=== PATIENT | female | born 1980 | race Caucasian/White ===

== ENCOUNTER 2016-11-19 13:04 | Inpatient (IN) | payer BC ==
[~2016-11-19] VITALS: Ht 162.6 cm; Wt 59.0 kg
[2016-11-19] MEDS ORDERED: DiphenhydrAMINE 50mg/ml Inj IVP ONE (13:30)
[2016-11-19] MEDS ORDERED: HYDROmorphone 1mg/ml Carpuject IVP ONE (13:30)
[2016-11-19 13:59] LABS: MEAN CORPUSCULAR HEMOGLOBIN 29.3 PG (27.0-31.0); MEAN CORPUSCULAR VOLUME 89 FL (80-99); MEAN PLATELET VOLUME 7.7 FL (6.5-10.1); PLATELET COUNT 170 K/UL (150-450); RED BLOOD COUNT 3.89 M/UL (4.20-5.40); WHITE BLOOD COUNT 6.5 K/UL (4.8-10.8)
[2016-11-19 14:14] LABS: ALANINE AMINOTRANSFERASE 8 U/L (3-33); ALBUMIN/GLOBULIN RATIO 1.6 (1.0-2.7); ANION GAP 10 (5-15); ASPARTATE AMINO TRANSFERASE 17 U/L (5-40); CALCIUM 8.7 mg/dL (8.6-10.2); CARBON DIOXIDE 29 mEQ/L (20-30); CHLORIDE 100 mEQ/L (98-107); CREATININE 0.7 mg/dL (0.5-0.9); GLOMERULAR FILTRATION RATE > 60 mL/min (>60); HEMOLYSIS 0; LIPASE 18 U/L (< 60); POTASSIUM 3.8 mEQ/L (3.4-4.9); SODIUM 139 mEQ/L (135-145); TOTAL PROTEIN 6.3 g/dL (6.6-8.7)
[2016-11-19 14:17] LABS: BAND NEUTROPHILS % (MANUAL) 0 % (0-8); BASOPHILS % (MANUAL) 0 % (0-2); EOSINOPHILS % (MANUAL) 1 % (0-3); LYMPHOCYTES % (MANUAL) 7 % (20-45); NEUTROPHILS % (MANUAL) 88 % (45-75); PLATELET ESTIMATE ADEQUATE; PLATELET MORPHOLOGY NORMAL; TOTAL CELLS COUNTED 100
[2016-11-19 15:08] LABS: KETONES,URINE NEGATIVE (NEGATIVE); LEUKOCYTE ESTERASE ,URINE 3+ (NEGATIVE); NITRITE,URINE NEGATIVE (NEGATIVE); PH,URINE 8 (4.5-8.0); PROTEIN,URINE NEGATIVE (NEGATIVE); UROBILINOGEN,URINE NORMAL MG/DL (0.0-1.0)
[2016-11-19 15:09] LABS: APPEARANCE,URINE SLIGHTLY CLOUDY
[2016-11-19] MEDS ORDERED: Zolpidem 5mg tab ORAL PRN (15:15)
--- NOTE | 2016-11-19 15:16 | Emergency Room Report ---
History of Present Illness General Chief Complaint: Abdominal Pain Source: Patient Present Illness HPI 36-year-old female presents to ED for evaluation. Patient is status post uterine artery embolization 3 days ago. Patient states he is here because she' s been having increasing abdominal pain since the surgery. Pain is 8/10, sharp , nonradiating. Also complaining of diarrhea. That she was a chills. Denies chest pain or shortness of breath. Denies nausea or vomiting. No other aggravating relieving factors. Denies any other associated symptoms Allergies: Coded Allergies: ACETAMINOPHEN (Verified Allergy, Intermediate, 11/19/16) HYDROCODONE (Verified Allergy, Intermediate, 11/19/16) KETOROLAC (Verified Allergy, Intermediate, 11/19/16) MORPHINE (Verified Allergy, Intermediate, 11/19/16) Patient History Past Medical History: none Past Surgical History: other - uterine artery embolization Pertinent Family History: none Social History: Denies: smoking, alcohol use, drug use Now: No Immunizations: UTD Reviewed Nursing Documentation: PMH: Agreed, PSxH: Agreed Nursing Documentation-PMH Hx Gastrointestinal Problems: Yes - histerostomy and ablation of uterus Review of Systems All Other Systems: negative except mentioned in HPI Physical Exam Vital Signs Date Time Temp Pulse Resp B/P (MAP) Pulse Ox O2 Delivery O2 Flow Rate FiO2 11/19/16 13:17 98.1 78 16 118/77 98 Room Air Sp02 EP Interpretation: reviewed, normal General Appearance: no apparent distress, alert, GCS 15, non-toxic Head: normocephalic, atraumatic Eyes: bilateral eye normal inspection, bilateral eye PERRL ENT: hearing grossly normal, normal pharynx, no angioedema, normal voice Neck: full range of motion, supple/symm/no masses Respiratory: chest non-tender, lungs clear, normal breath sounds, speaking full sentences Cardiovascular #1: regular rate, rhythm, no edema Cardiovascular #2: 2+ carotid (R), 2+ carotid (L), 2+ radial (R), 2+ radial (L) , 2+ dorsalis pedis (R), 2+ dorsalis pedis (L) Gastrointestinal: normal bowel sounds, soft, non-distended, no guarding, no rebound, tenderness Rectal: deferred Genitourinary: normal inspection, no CVA tenderness Musculoskeletal: back normal, gait/station normal, normal range of motion, non- tender Neurologic: alert, oriented x3, responsive, motor strength/tone normal, sensory intact, speech normal Psychiatric: judgement/insight normal, memory normal, mood/affect normal, no suicidal/homicidal ideation Reflexes: 3+ bicep (R), 3+ bicep (L), 3+ tricep (R), 3+ tricep (L), 3+ knee (R) , 3+ knee (L) Skin: normal color, no rash, warm/dry, well hydrated Lymphatic: no adenopathy Medical Decision Making Diagnostic Impression: Primary Impression: Status post embolization of uterine artery Additional Impression: Postoperative abdominal pain ER Course Hospital Course 36-year-old female presents ED complaining of lower abdominal pain. Status post uterine artery embolization Differential diagnoses include: postop abscess. postoperative pain, gastroenteritis Clinical course Patient placed on stretcher. cardiac monitor technician. After initial history and physical I ordered labs, IV fluids, UA, pain medication and Pelvic US Labs - no leukocytosis, Hb/Hct stable. electrolytes ok. Pelvic US - changes c/w uterine artery embolization. no acute process Venous arterial duplex of lower extremities pending Case discussed with Dr. Laguna and he agreed to accept the patient to his service for further care and support. Dr rich will consult I feel this is a highly complex case requiring extensive working including EKG/ Rhythm strip, Xray/CT/US, Blood/urine lab work, repeat exams while in ED, and administration of strong opiates/narcotics for pain control, admission to hospital or close patient follow up. Diagnosis - s/p uterine artery embolization, postoperative abdominal pain Patient admitted to floor in serious condition Labs Test 11/19/16 13:43 11/19/16 15:00 White Blood Count 6.5 K/UL (4.8-10.8) Red Blood Count 3.89 M/UL (4.20-5.40) Hemoglobin 11.4 G/DL (12.0-16.0) Hematocrit 34.6 % (37.0-47.0) Mean Corpuscular Volume 89 FL (80-99) Mean Corpuscular Hemoglobin 29.3 PG (27.0-31.0) Mean Corpuscular Hemoglobin Concent 33.0 G/DL (32.0-36.0) Red Cell Distribution Width 14.0 % (11.6-14.8) Platelet Count 170 K/UL (150-450) Mean Platelet Volume 7.7 FL (6.5-10.1) Neutrophils (%) (Auto) % (45.0-75.0) Lymphocytes (%) (Auto) % (20.0-45.0) Monocytes (%) (Auto) % (1.0-10.0) Eosinophils (%) (Auto) % (0.0-3.0) Basophils (%) (Auto) % (0.0-2.0) Differential Total Cells Counted 100 Neutrophils % (Manual) 88 % (45-75) Lymphocytes % (Manual) 7 % (20-45) Monocytes % (Manual) 4 % (1-10) Eosinophils % (Manual) 1 % (0-3) Basophils % (Manual) 0 % (0-2) Band Neutrophils 0 % (0-8) Platelet Estimate Adequate Platelet Morphology Normal Red Blood Cell Morphology Normal Sodium Level 139 mEQ/L (135-145) Potassium Level 3.8 mEQ/L (3.4-4.9) Chloride Level 100 mEQ/L (98-107) Carbon Dioxide Level 29 mEQ/L (20-30) Anion Gap 10 (5-15) Blood Urea Nitrogen 4 mg/dL (7-23) Creatinine 0.7 mg/dL (0.5-0.9) Estimat Glomerular Filtration Rate > 60 mL/min (>60) Glucose Level 99 mg/dL (74-106) Calcium Level 8.7 mg/dL (8.6-10.2) Total Bilirubin 0.5 mg/dL (0.0-1.2) Aspartate Amino Transf (AST/SGOT) 17 U/L (5-40) Alanine Aminotransferase (ALT/SGPT) 8 U/L (3-33) Alkaline Phosphatase 37 U/L (35-104) Total Protein 6.3 g/dL (6.6-8.7) Albumin 3.9 g/dL (3.5-5.2) Globulin 2.4 g/dL Albumin/Globulin Ratio 1.6 (1.0-2.7) Lipase 18 U/L (< 60) Urine Color Pale yellow Urine Appearance Slightly cloudy Urine pH 8 (4.5-8.0) Urine Specific [place] 1.010 (1.005-1.035) Urine Protein Negative (NEGATIVE) Urine Glucose (UA) Negative (NEGATIVE) Urine Ketones Negative (NEGATIVE) Urine Occult Blood 5+ (NEGATIVE) Urine Nitrite Negative (NEGATIVE) Urine Bilirubin Negative (NEGATIVE) Urine Urobilinogen Normal MG/DL (0.0-1.0) Urine Leukocyte Esterase 3+ (NEGATIVE) Urine HCG, Qualitative Negative CT/MRI/US Diagnostic Results CT/MRI/US Diagnostic Results : Imaging Test Ordered: Pelvic US Impression changes consistent with uterine artery embolization Last Vital Signs Date Time Temp Pulse Resp B/P (MAP) Pulse Ox O2 Delivery O2 Flow Rate FiO2 11/19/16 13:17 98.1 78 16 118/77 98 Room Air Status: improved Disposition: ADMITTED INPATIENT Condition: Serious Referrals: NON PHYSICIAN (PCP) ELVIRA KELLER M.D. Nov 19, 2016 15:16
[2016-11-19 15:17] VITALS: BP 111/76
[2016-11-19 15:37] LABS: BACTERIA,URINE FEW /HPF; RBC,URINE 15-20 /HPF (0 - 2); SQUAMOUS EPITHELIAL CELL,UR FEW /LPF (NONE/OCC)
--- NOTE | 2016-11-19 15:51 | Diagnostic Imaging Report ---
Indication: Abdominal pain, status post uterine artery embolization 3 days earlier Technique: Transabdominal and transvaginal images Comparison: None Findings: Uterus measures 10 cm length by 6.4 cm AP. Within the uterus are multiple fibroids. These contain bright echoes, likely indicating gas which is expected after uterine artery embolization largest fibroid measures 3.9 cm long axis dimension. The endometrium measures 4 mm thick. There is a small amount of free fluid in the pelvic cul-de-sac. Right ovary measures 4.3 cm in length. The left ovary measures 4.3 cm length. Both ovaries demonstrate multiple follicles. Normal Doppler flow seen within the ovaries Impression: Multiple uterine fibroids. Bright echoes within the fibroids likely reflects gas related to recent uterine artery embolization, an expected finding Negative for adnexal mass Small amount of free cul-de-sac fluid, most likely physiologic
[2016-11-19] MEDS ORDERED: IBUPROFEN800 M1 (16:23)
[2016-11-19] MEDS ORDERED: OXYCODONE-ACET1 EAC3 (16:23)
[2016-11-19] MEDS ORDERED: AMOX TR-K CLV1 EAC2 (16:23)
[2016-11-19 16:25] VITALS: BP 123/67
[2016-11-19] MEDS: HYDROmorphone 1mg/ml Carpuject IVP PRN ×2 (18:21→23:06)
[2016-11-19] MEDS: D5 1/2NS w/KCl 20mEq 1,000 ML IV SCH (18:21)
[2016-11-19 20:00] VITALS: BP 105/63
--- NOTE | 2016-11-19 23:15 | Consultation ---
DATE OF CONSULTATION: 11/19/2016 INTERNAL MEDICINE CONSULTATION History of Present Illness: The patient is a very pleasant 36-year-old woman who came to the hospital for pelvic pain and diarrhea. She has a longstanding problem with uterine fibroids and underwent uterine artery embolization three days ago followed by a hysteroscopy two days ago. Following the procedures, she has had severe abdominal pain, which has been unremitting and getting worse. In addition, she was constipated and took a lot of laxatives and began having diarrhea and she got very weak and came to the emergency department and admission was recommended. There is slight swelling at the right groin at the arteriotomy site. She has no high fever. PAST MEDICAL HISTORY: Hypothyroidism, otherwise unremarkable. 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 She does not smoke. She drinks socially. She has no other major complaints. PHYSICAL EXAMINATION: GENERAL: The patient is alert and responds appropriately. Vital Signs: Blood pressure 118/77, temperature, heart rate, respirations, and saturation are normal. The patient appears thin. HEENT: The head is normocephalic. NECK: No jugular venous distention. CHEST: Clear. CARDIAC: Rhythm is regular. Thyroid is not enlarged. Abdomen: Soft, but tender in the lower abdomen and pelvis. There is no mass obvious, but there is mild guarding. Pelvic: The right groin shows an arthrotomy site without swelling or tenderness. Extremities: No clubbing, cyanosis, or edema. There is no CVA tenderness. Laboratory And Diagnostic Data: Normal chemistry. White count is 6500, hemoglobin is 11.4, and platelets are normal. There is mild left shift. IMPRESSION: 1. Post procedure pelvic pain. 2. Status post uterine artery embolization and hysteroscopy. 3. Hypothyroidism. Plan: The patient will be admitted and given intravenous fluids. Duplex will be obtained to rule out pseudoaneurysm of the right femoral artery. We will give appropriate pain medication. I do not believe antibiotics are needed and we will withhold any bowel medications at this time until the diarrhea resolves. Stool specimens will be sent. Thank you. Laurent Brownlee M.D. DR: GRIS JOB#: [id number] CC: Laurent Brownlee M.D.; Fax#: [phone] Laguna M.D. ; Fax#: [phone]
[2016-11-20] VITALS: BP 104/64
[2016-11-20] MEDS: D5 1/2NS w/KCl 20mEq 1,000 ML IV SCH ×4 (02:33→22:30)
[2016-11-20] MEDS: HYDROmorphone 1mg/ml Carpuject IVP PRN ×3 (02:33→08:41)
[2016-11-20 04:00] VITALS: BP 117/64
[2016-11-20 08:00] VITALS: BP 106/68
[2016-11-20 08:15] LABS: BASOPHILS % (AUTO) 0.7 % (0.0-2.0); LYMPHOCYTES % (AUTO) 15.9 % (20.0-45.0); MEAN CORPUSCULAR HEMOGLOBIN 29.8 PG (27.0-31.0); MEAN CORPUSCULAR HGB CONC 33.7 G/DL (32.0-36.0); MEAN CORPUSCULAR VOLUME 88 FL (80-99); MEAN PLATELET VOLUME 6.7 FL (6.5-10.1); MONOCYTES % (AUTO) 8.4 % (1.0-10.0); NEUTROPHILS % (AUTO) 74.1 % (45.0-75.0); PLATELET COUNT 147 K/UL (150-450); RED BLOOD COUNT 3.56 M/UL (4.20-5.40); RED CELL DISTRIBUTION WIDTH 13.7 % (11.6-14.8); WHITE BLOOD COUNT 6.1 K/UL (4.8-10.8)
[2016-11-20 08:27] LABS: ANION GAP 7 (5-15); CARBON DIOXIDE 28 mEQ/L (20-30); CHLORIDE 102 mEQ/L (98-107); CREATININE 0.7 mg/dL (0.5-0.9); GLOMERULAR FILTRATION RATE > 60 mL/min (>60); HEMOLYSIS 0; POTASSIUM 4.2 mEQ/L (3.4-4.9); SODIUM 137 mEQ/L (135-145)
--- NOTE | 2016-11-20 11:34 | General Surgery Progress Note ---
General Surgery-Progress Note Subjective Day of Surgery: november 16 Procedure Performed uterine artery embolization Chief Complaint: pain, diarrhea Symptoms: improved, tolerating diet, voiding well, passing flatus Objective Last 24 Hour Vital Signs Date Time Temp Pulse Resp B/P (MAP) Pulse Ox O2 Delivery O2 Flow Rate FiO2 11/20/16 09:11 99.7 11/20/16 08:00 100.2 74 18 106/68 97 Room Air 11/20/16 04:00 99.7 76 18 117/64 97 Room Air 11/20/16 00:00 99.1 81 17 104/64 97 Room Air 11/19/16 20:00 99.4 78 18 105/63 96 Room Air 11/19/16 16:30 99.0 66 17 118/68 100 Room Air 11/19/16 16:28 118/68 11/19/16 16:25 99.9 79 18 123/67 100 Room Air 11/19/16 15:56 99.0 11/19/16 15:17 99.9 75 17 111/76 100 Room Air 11/19/16 13:17 98.1 78 16 118/77 98 Room Air I&O Intake and Output 11/20/16 11/21/16 19:00 07:00 Intake Total 300 ml Balance 300 ml Intake Oral 200 ml IV Total 100 ml Dressing: dry Wound: clean Drains: none Cardiovascular: RSR Respiratory: clear Abdomen: soft, flat, scaphoid, non-tender, present bowel sounds Extremities: no edema, no tenderness, no cyanosis, pulses - dorsalis pedis pulses strong bilaterally Laboratory Tests Test 11/19/16 13:43 11/19/16 15:00 11/20/16 08:00 White Blood Count 6.5 K/UL (4.8-10.8) 6.1 K/UL (4.8-10.8) Red Blood Count 3.89 M/UL (4.20-5.40) L 3.56 M/UL (4.20-5.40) L Hemoglobin 11.4 G/DL (12.0-16.0) L 10.6 G/DL (12.0-16.0) L Hematocrit 34.6 % (37.0-47.0) L 31.5 % (37.0-47.0) L Mean Corpuscular Volume 89 FL (80-99) 88 FL (80-99) Mean Corpuscular Hemoglobin 29.3 PG (27.0-31.0) 29.8 PG (27.0-31.0) Mean Corpuscular Hemoglobin Concent 33.0 G/DL (32.0-36.0) 33.7 G/DL (32.0-36.0) Red Cell Distribution Width 14.0 % (11.6-14.8) 13.7 % (11.6-14.8) Platelet Count 170 K/UL (150-450) 147 K/UL (150-450) L Mean Platelet Volume 7.7 FL (6.5-10.1) 6.7 FL (6.5-10.1) Neutrophils (%) (Auto) % (45.0-75.0) 74.1 % (45.0-75.0) Lymphocytes (%) (Auto) % (20.0-45.0) 15.9 % (20.0-45.0) L Monocytes (%) (Auto) % (1.0-10.0) 8.4 % (1.0-10.0) Eosinophils (%) (Auto) % (0.0-3.0) 1.0 % (0.0-3.0) Basophils (%) (Auto) % (0.0-2.0) 0.7 % (0.0-2.0) Differential Total Cells Counted 100 Neutrophils % (Manual) 88 % (45-75) H Lymphocytes % (Manual) 7 % (20-45) L Monocytes % (Manual) 4 % (1-10) Eosinophils % (Manual) 1 % (0-3) Basophils % (Manual) 0 % (0-2) Band Neutrophils 0 % (0-8) Platelet Estimate Adequate Platelet Morphology Normal Red Blood Cell Morphology Normal Sodium Level 139 mEQ/L (135-145) 137 mEQ/L (135-145) Potassium Level 3.8 mEQ/L (3.4-4.9) 4.2 mEQ/L (3.4-4.9) Chloride Level 100 mEQ/L (98-107) 102 mEQ/L (98-107) Carbon Dioxide Level 29 mEQ/L (20-30) 28 mEQ/L (20-30) Anion Gap 10 (5-15) 7 (5-15) Blood Urea Nitrogen 4 mg/dL (7-23) L 3 mg/dL (7-23) L Creatinine 0.7 mg/dL (0.5-0.9) 0.7 mg/dL (0.5-0.9) Estimat Glomerular Filtration Rate > 60 mL/min (>60) > 60 mL/min (>60) Glucose Level 99 mg/dL (74-106) 110 mg/dL (74-106) H Calcium Level 8.7 mg/dL (8.6-10.2) 9.0 mg/dL (8.6-10.2) Total Bilirubin 0.5 mg/dL (0.0-1.2) Aspartate Amino Transf (AST/SGOT) 17 U/L (5-40) Alanine Aminotransferase (ALT/SGPT) 8 U/L (3-33) Alkaline Phosphatase 37 U/L (35-104) Total Protein 6.3 g/dL (6.6-8.7) L Albumin 3.9 g/dL (3.5-5.2) Globulin 2.4 g/dL Albumin/Globulin Ratio 1.6 (1.0-2.7) Lipase 18 U/L (< 60) Urine Color Pale yellow Urine Appearance Slightly cloudy Urine pH 8 (4.5-8.0) Urine Specific [place] 1.010 (1.005-1.035) Urine Protein Negative (NEGATIVE) Urine Glucose (UA) Negative (NEGATIVE) Urine Ketones Negative (NEGATIVE) Urine Occult Blood 5+ (NEGATIVE) H Urine Nitrite Negative (NEGATIVE) Urine Bilirubin Negative (NEGATIVE) Urine Urobilinogen Normal MG/DL (0.0-1.0) Urine Leukocyte Esterase 3+ (NEGATIVE) H Urine RBC 15-20 /HPF (0 - 2) H Urine WBC 10-15 /HPF (0 - 2) H Urine Squamous Epithelial Cells Few /LPF (NONE/OCC) Urine Bacteria Few /HPF (NONE) Urine HCG, Qualitative Negative Imaging pelvic ultrasound no active disease, ultrasound right groin negative. will repeat doppler leg arteries prior to discharge Assessment Post-op Diagnosis post embolization pain, low grade temperature, normal white count, blood culture sent, on ancef 1 gm ivpb q 8h. Plan Additional Comments attempt pain control with pills later today if possible. may shower, heplock iv. ambulate. José Antonio Laguna MD Nov 20, 2016 11:34
[2016-11-20] MEDS ORDERED: oxyCODONE 5mg IR tab ORAL PRN (11:45)
[2016-11-20] MEDS: ceFAZolin sod 1 GM in D5W 55 ML IVPB SCH ×3 (11:52→21:02)
[2016-11-20 12:00] VITALS: BP 100/59
[2016-11-20] MEDS ORDERED: HYDROmorphone 1mg/ml Carpuject IVP PRN (12:00)
[2016-11-20] MEDS: oxyCODONE 5mg IR tab ORAL PRN ×3 (12:40→21:17)
[2016-11-20 16:00] VITALS: BP 115/74
[2016-11-20] MEDS ORDERED: Tubing IV Secondary IV ONE (17:42)
[2016-11-20] MEDS ORDERED: NS Irrig 4000ml IRRIG ONE (17:42)
[2016-11-20 20:00] VITALS: BP 110/70
[2016-11-21] VITALS: BP 97/65
[2016-11-21] MEDS: oxyCODONE 5mg IR tab ORAL PRN (02:01)
[2016-11-21 04:00] VITALS: BP 104/60
--- NOTE | 2016-11-21 06:38 | Pulmonology Progress Note ---
Assessment/Plan Assessment/Plan 1. Post procedure pelvic pain. 2. Status post uterine artery embolization and hysteroscopy. 3. Hypothyroidism. 4. UTI 5. Atelectasis better today transition iv abx to po levaquin fu cultures labs still pendign today encouraged IS monitor dc planning Subjective Constitutional: Reports: fever HEENT: Repors: no symptoms Respiratory: Reports: no symptoms Cardiovascular: Reports: no symptoms Gastrointestinal/Abdominal: Reports: other Genitourinary: Reports: no symptoms Neurologic: Reports: no symptoms Psychiatric: Reports: no symptoms Skin: Reports: no symptoms Allergies: Coded Allergies: ACETAMINOPHEN (Verified Allergy, Intermediate, 11/19/16) HYDROCODONE (Verified Allergy, Intermediate, 11/19/16) KETOROLAC (Verified Allergy, Intermediate, 11/19/16) MORPHINE (Verified Allergy, Intermediate, 11/19/16) Subjective better this am scant bleeding no cp nv or fever at this time labs pending tolerating po Objective Last 24 Hour Vital Signs Date Time Temp Pulse Resp B/P (MAP) Pulse Ox O2 Delivery O2 Flow Rate FiO2 11/21/16 04:00 98.2 88 20 104/60 97 Room Air 11/21/16 00:00 98.3 85 18 97/65 96 Room Air 11/20/16 20:00 98.1 84 18 110/70 97 Room Air 11/20/16 17:56 98.3 11/20/16 16:00 101.2 87 17 115/74 97 Room Air 11/20/16 12:00 99.8 17 100/59 98 Room Air 11/20/16 09:11 99.7 11/20/16 08:00 100.2 74 18 106/68 97 Room Air General Appearance: WD/WN Respiratory/Chest: lungs clear Cardiovascular: normal rate Abdomen: normal bowel sounds, tender Extremities: no cyanosis Skin: no rash, no lesions Neurologic/Psychiatric: motor power connector II-XII grossly normal, no motor/sensory deficits, oriented x 3 Lymphatic: no neck adenopathy Musculoskeletal: no effusion Microbiology Date/Time Source Procedure Growth Status 11/19/16 15:00 Urine,Clean Catch Urine Culture - Final NO GROWTH AFTER 48 HOURS Complete Laboratory Tests 11/20/16 08:00: White Blood Count 6.1, Red Blood Count 3.56L, Hemoglobin 10.6L, Hematocrit 31.5L , Mean Corpuscular Volume 88, Mean Corpuscular Hemoglobin 29.8, Mean Corpuscular Hemoglobin Concent 33.7, Red Cell Distribution Width 13.7, Platelet Count 147L, Mean Platelet Volume 6.7, Neutrophils (%) (Auto) 74.1, Lymphocytes ( %) (Auto) 15.9L, Monocytes (%) (Auto) 8.4, Eosinophils (%) (Auto) 1.0, Basophils (%) (Auto) 0.7, Sodium Level 137, Potassium Level 4.2, Chloride Level 102, Carbon Dioxide Level 28, Anion Gap 7, Blood Urea Nitrogen 3L, Creatinine 0.7, Estimat Glomerular Filtration Rate > 60, Glucose Level 110H, Calcium Level 9.0 11/21/16 05:20: White Blood Count [Pending], Red Blood Count [Pending], Hemoglobin [Pending], Hematocrit [Pending], Mean Corpuscular Volume [Pending], Mean Corpuscular Hemoglobin [Pending], Mean Corpuscular Hemoglobin Concent [Pending], Red Cell Distribution Width [Pending], Platelet Count [Pending], Mean Platelet Volume [ Pending], Neutrophils (%) (Auto) [Pending], Lymphocytes (%) (Auto) [Pending], Monocytes (%) (Auto) [Pending], Eosinophils (%) (Auto) [Pending], Basophils (%) (Auto) [Pending], Sodium Level [Pending], Potassium Level [Pending], Chloride Level [Pending], Carbon Dioxide Level [Pending], Blood Urea Nitrogen [Pending], Creatinine [Pending], Estimat Glomerular Filtration Rate [Pending], Glucose Level [Pending], Calcium Level [Pending], Total Bilirubin [Pending], Aspartate Amino Transf (AST/SGOT) [Pending], Alanine Aminotransferase (ALT/SGPT) [Pending] , Alkaline Phosphatase [Pending], Total Protein [Pending], Albumin [Pending], Globulin [Pending] Current Medications Medications (Trade) Dose Ordered Sig/Danisha Route PRN Reason Start Time Stop Time Status Last Admin Dose Admin Cefazolin Sodium 1 gm/Dextrose 55 ml @ 110 mls/hr Q8HR IVPB 11/20/16 10:00 11/27/16 09:59 11/20/16 21:02 Dextrose (Dextrose 50%) STAT PRN IV Hypoglycemia 11/19/16 15:15 12/19/16 15:14 Dextrose/ Electrolytes 1,000 ml @ 100 mls/hr Q10H IV 11/19/16 16:30 12/19/16 16:29 11/20/16 22:30 Diphenhydramine HCl (Benadryl) 25 mg Q4H PRN ORAL Itching/Pruritis 11/19/16 15:15 12/19/16 15:14 11/21/16 00:09 Diphenhydramine HCl (Benadryl) 50 mg Q6H PRN ORAL Itching 11/19/16 17:00 12/19/16 16:59 Hydromorphone HCl (Dilaudid) 1 mg Q3H PRN IVP Mod to Severe Pain (pain 4-10) 11/20/16 12:00 11/26/16 15:14 Ondansetron HCl (Zofran) 4 mg Q6H PRN IVP Nausea & Vomiting 11/19/16 19:30 12/19/16 19:29 11/20/16 09:59 Oxycodone HCl (Roxicodone) 5 mg Q4H PRN ORAL Mod to Severe Pain (pain 4-10) 11/20/16 11:45 11/27/16 11:44 11/21/16 02:01 Thyroid ([place] Thyroid) 15 mg ACBREAKFAST ORAL 11/21/16 06:30 12/21/16 06:29 Zolpidem Tartrate (Ambien) 5 mg HSPRN PRN ORAL Insomnia 11/19/16 15:15 11/26/16 15:14 NIMESH PATINO DO Nov 21, 2016 06:38
[2016-11-21 06:55] LABS: ALANINE AMINOTRANSFERASE 6 U/L (3-33); ALBUMIN/GLOBULIN RATIO 1.4 (1.0-2.7); ANION GAP 10 (5-15); ASPARTATE AMINO TRANSFERASE 12 U/L (5-40); CALCIUM 8.5 mg/dL (8.6-10.2); CARBON DIOXIDE 27 mEQ/L (20-30); CHLORIDE 101 mEQ/L (98-107); CREATININE 0.7 mg/dL (0.5-0.9); GLOMERULAR FILTRATION RATE > 60 mL/min (>60); HEMOLYSIS 1; POTASSIUM 4.3 mEQ/L (3.4-4.9); SODIUM 138 mEQ/L (135-145); TOTAL PROTEIN 5.9 g/dL (6.6-8.7)
[2016-11-21 07:03] LABS: BASOPHILS % (AUTO) 0.7 % (0.0-2.0); LYMPHOCYTES % (AUTO) 18.5 % (20.0-45.0); MEAN CORPUSCULAR HEMOGLOBIN 30.1 PG (27.0-31.0); MEAN CORPUSCULAR HGB CONC 34.2 G/DL (32.0-36.0); MEAN CORPUSCULAR VOLUME 88 FL (80-99); MEAN PLATELET VOLUME 7.8 FL (6.5-10.1); MONOCYTES % (AUTO) 9.3 % (1.0-10.0); NEUTROPHILS % (AUTO) 69.6 % (45.0-75.0); PLATELET COUNT 186 K/UL (150-450); RED BLOOD COUNT 3.59 M/UL (4.20-5.40); RED CELL DISTRIBUTION WIDTH 13.6 % (11.6-14.8); WHITE BLOOD COUNT 6.7 K/UL (4.8-10.8)
[2016-11-21] MEDS: ceFAZolin sod 1 GM in D5W 55 ML IVPB SCH (07:34)
[2016-11-21] MEDS: D5 1/2NS w/KCl 20mEq 1,000 ML IV SCH (08:30)
[2016-11-21 09:00] VITALS: BP 101/60
[2016-11-21] MEDS ORDERED: Levofloxacin 500mg tab ORAL SCH (09:00)
--- NOTE | 2016-11-21 09:18 | Diagnostic Imaging Report ---
Indication: Right inguinal hematoma/swelling Technique: ULT PELVIC LIMITED Comparison: None Findings: There is no obvious fluid collection or pseudoaneurysm in the visualized right inguinal canal. Impression: No obvious fluid collection or pseudoaneurysm in the visualized right inguinal canal. CT of the pelvis recommended for further evaluation as indicated.
[2016-11-21 12:00] VITALS: BP 100/62
--- NOTE | 2016-11-21 17:04 | General Surgery Progress Note ---
General Surgery-Progress Note Subjective Procedure Performed uterine artery embolization Symptoms: improved, tolerating diet, voiding well, passing flatus Objective Last 24 Hour Vital Signs Date Time Temp Pulse Resp B/P (MAP) Pulse Ox O2 Delivery O2 Flow Rate FiO2 11/21/16 12:00 98.6 78 20 100/62 96 Room Air 11/21/16 09:00 98.9 79 20 101/60 97 Room Air 11/21/16 04:00 98.2 88 20 104/60 97 Room Air 11/21/16 00:00 98.3 85 18 97/65 96 Room Air 11/20/16 20:00 98.1 84 18 110/70 97 Room Air 11/20/16 17:56 98.3 I&O Intake and Output 11/21/16 11/22/16 19:00 07:00 Intake Total 1105 ml Output Total 1 ml Balance 1104 ml Intake Oral 550 ml IV Total 555 ml Output Urine Total 1 ml # Voids 1 Dressing: dry Wound: clean Drains: none Cardiovascular: RSR Respiratory: clear Abdomen: soft, flat, scaphoid, non-tender, present bowel sounds Extremities: no edema, no tenderness, no cyanosis Laboratory Tests Test 11/21/16 05:20 White Blood Count 6.7 K/UL (4.8-10.8) Red Blood Count 3.59 M/UL (4.20-5.40) L Hemoglobin 10.8 G/DL (12.0-16.0) L Hematocrit 31.6 % (37.0-47.0) L Mean Corpuscular Volume 88 FL (80-99) Mean Corpuscular Hemoglobin 30.1 PG (27.0-31.0) Mean Corpuscular Hemoglobin Concent 34.2 G/DL (32.0-36.0) Red Cell Distribution Width 13.6 % (11.6-14.8) Platelet Count 186 K/UL (150-450) Mean Platelet Volume 7.8 FL (6.5-10.1) Neutrophils (%) (Auto) 69.6 % (45.0-75.0) Lymphocytes (%) (Auto) 18.5 % (20.0-45.0) L Monocytes (%) (Auto) 9.3 % (1.0-10.0) Eosinophils (%) (Auto) 2.0 % (0.0-3.0) Basophils (%) (Auto) 0.7 % (0.0-2.0) Sodium Level 138 mEQ/L (135-145) Potassium Level 4.3 mEQ/L (3.4-4.9) Chloride Level 101 mEQ/L (98-107) Carbon Dioxide Level 27 mEQ/L (20-30) Anion Gap 10 (5-15) Blood Urea Nitrogen 3 mg/dL (7-23) L Creatinine 0.7 mg/dL (0.5-0.9) Estimat Glomerular Filtration Rate > 60 mL/min (>60) Glucose Level 110 mg/dL (74-106) H Calcium Level 8.5 mg/dL (8.6-10.2) L Total Bilirubin 0.3 mg/dL (0.0-1.2) Aspartate Amino Transf (AST/SGOT) 12 U/L (5-40) Alanine Aminotransferase (ALT/SGPT) 6 U/L (3-33) Alkaline Phosphatase 38 U/L (35-104) Total Protein 5.9 g/dL (6.6-8.7) L Albumin 3.5 g/dL (3.5-5.2) Globulin 2.4 g/dL Albumin/Globulin Ratio 1.4 (1.0-2.7) Additional Comments dorsalis pedis pulses 4+ bilat, doppler reviewed, no decreased flow in right leg. normal white count persists, pain controlled with oral medication. Assessment Post-op Diagnosis post embolization pain, low grade temperature, normal white count, blood culture sent, on ancef 1 gm ivpb q 8h. Plan Additional Comments ok to discharge home, follow up one week José Antonio Laguna MD Nov 21, 2016 17:04
--- NOTE | 2016-11-22 12:52 | Diagnostic Imaging Report ---
APPROVED REPORT CPT Code: 58363 Symptoms Comments: Hx of recent uterine artery embolization Comments Swelling VELOCITY MEASUREMENTS AND DOPPLER WAVEFORM ANALYSIS RIGHTcm/secWaveformSeverityLEFTcm/secWaveformSeverity Com Fem Art. 86TriphasicCom Fem Art. 114Triphasic Fem Art Prox. 90TriphasicFem Art Prox. 103Triphasic Fem Art Mid. 120TriphasicFem Art Mid. 120Triphasic Fem Art Dist. 104TriphasicFem Art Dist. 109Triphasic Pop Art Mid. 94TriphasicPop Art Mid. 64Triphasic ENGINEERING ASSISTANT Dist. 49TriphasicPTA Dist. 54Triphasic Per Art Dist. 50TriphasicPer Art Dist. 79Triphasic MARIELOS Prox. 58TriphasicATA Prox. 78Triphasic BILATERAL: Common femoral artery waveform analysis is within normal limits at rest. Color flow duplex sonography reveals patency of the superficial femoral, popliteal, and tibial arteries, there is no evidence of stenosis or occlusion within these segments. Doppler tibial artery waveform analysis is within normal limits (triphasic), bilaterally. There is no evidence of significant arterial occlusive disease, bilaterally. IF THE REFERRING PHYSICIAN WOULD LIKE TO SPEAK TO THE INTERPRETING VASCULAR SURGEN PLEASE CALL [phone] DR. RAZO
--- NOTE | 2016-11-22 12:53 | Diagnostic Imaging Report ---
APPROVED REPORT CPT Code: 59522 Present Symptoms Comments: Swelling Hx of recent uterine artery embolization(Post Op) BILATERAL: Imaging reveals a patent deep venous system bilaterally. There is no evidence of thrombus within the femoral, popliteal or tibial segments. The greater saphenous veins are also within normal limits. Doppler indicates normal spontaneous flow within these segments.
--- NOTE | 2016-11-23 10:43 | Discharge Summary ---
Discharge Summary Hospital Course Date of Admission Nov 19, 2016 at 14:30 Date of Discharge Nov 21, 2016 at 13:42 Admitting Diagnosis POSTOP PAIN Reason for Hospitalization: pain management HPI Jenn Hale is a 36 year old female who was admitted on Nov 19, 2016 at 14 :30 for Postop Pain 36-year-old female, s/p uterine artery embolization 3 days ago, presented to ED for evaluation. Patient reported increased abdominal/pelvic pain after the surgery. Pain was 8/10, sharp, nonradiating. Patient also was complaining of diarrhea. She reported chills. She denied chest pain or shortness of breath. She denied nausea or vomiting. In ED no leukocytosis lytes, LFT, lipase, renal parameters all WNL mild anemia -11.4/34.6 UA+ pyuria, but few bacteria urine HCG negative patient was admitted for further management Hospital Course patient was admitted IVF pain management addressed, IM doctor followed along with surgeon pelvic /TV US revealed: Multiple uterine fibroids. Bright echoes within the fibroids likely reflects gas related to recent uterine artery embolization, an expected finding Negative for adnexal mass Small amount of free cul-de-sac fluid, most likely physiologic venous Duplex BLE - no acute DVT, arterial Duplex BLE -no evidence of pseudoaneurysm in R femoral artery pelvic US - no obvious fluid collection or pseudoaneurysm in the visualized right inguinal canal. initially on empiric abx for possible UTI, urine cx and blood cx negative, off abx stool softeners on hold, diarrhea resolved, unable to collect stool specimen IS at the bedside, encourage to use while in bed encourage ambulation levothyroxine was continued HH at baseline pain controlled tolerates diet afebrile, no leucocytosis, ambulates stable for dc FINAL DIAGNOSING postoperative abdominal/pelvic pain s/p uterine artery embolization ( 3 days ago) hypothyroidism mild anemia atelectasis Discharge Medications Continued Medications: Ibuprofen (Ibuprofen) 800 Mg Tablet Oxycodone Hcl/Acetaminophen 5-325* (Oxycodone-Acetaminophen 5-325*) 1 Each Tablet Discontinued Medications: Amoxicillin/Potassium Clav 875-125 Mg Tab* (Amox Tr-K Clv 875-125 Mg Tab*) 1 Each Tablet Discharge Condition Upon Discharge: stable Discharge Disposition Patient was discharged to Home (01) Discharge Diagnoses: Discharge Instructions Discharge Instructions Special Instructions I have been assigned to complete a D/C Summary on this account. I was not involved in the patient management Ana Maria Lincoln NP ([facility]) Nov 23, 2016 10:43
== END 2016-11-21 13:42 | disposition home or self-care (01) | DRG 948 ==
LOC: EMR 14:07 → 3E 14:30 → EDBEDREQ 14:53 → 3E 11-20 11:00
DX: G89.18 Other acute postprocedural pain (principal); J98.11 Atelectasis; R10.9 Unspecified abdominal pain; R10.2 Pelvic and perineal pain; Z98.890 Other specified postprocedural states; R19.7 Diarrhea, unspecified; E03.9 Hypothyroidism, unspecified; Z88.6 Allergy status to analgesic agent; Z88.8 Allergy status to other drugs, medicaments and biological substances
CPT/HCPCS: 36415; 76830; 76856; 76857; 80048; 80053; 81003; 81025; 83690; 85007; 85025; 87040; 87086; 93925; 93970; 99285; J2405